=== PATIENT | female | born 1940 | race Caucasian/White ===

== ENCOUNTER 2017-12-13 16:47 | Inpatient (IN) | payer MEDICARE, BC ==
[~2017-12-13] VITALS: Ht 162.6 cm; Wt 91.3 kg
[2017-12-13] MEDS ORDERED: SPIR25TA PO (17:00)
[2017-12-13 17:01] VITALS: BP 139/69; PULSE 86; RESP 18; TEMP 98.2; O2SAT 97
[2017-12-13] MEDS ORDERED: ASPI-183 PO (17:01)
--- NOTE | 2017-12-13 17:32 | PD ---
HPI Chief Complaint: Syncope/Near-Syncope Time Seen by Provider: 17:13 Travel History International Travel<30 days: No Contact w/Intl Traveler<30days: No Traveled to known affect area: No History of Present Illness HPI 77-year-old female came to the emergency room with history syncopal episode today that was witnessed by her friend. This happened between 830 and 9:00. Patient was on the floor since then. Initially she did not want help to be called. But after struggling to make her stand up on her feet for couple hours he decided to call the fire department. Eventually she was off the floor after 7 hours. She was brought to the emergency room. As per the friend patient has been dealing with a "cold" for past 1 week. She has been taking Coricidin 2 tablets every day. Patient was afebrile in the emergency room. This morning she also had an episode of diarrhea. When she fell she hit her head and there was some bleeding noticed on the floor. Currently patient is awake but looks a little confused. No history of vomiting. She has never had syncopal episodes in the past. [facility] Past Medical History Narrative Medical List of her past medical, surgical, social and family history reviewed from the nursing note. Cardiovascular Problems: Yes (PERIPHERAL EDEMA) Musculoskeletal: Yes (CHRONIC BACK PAIN) Tetanus Vaccination: Unknown Influenza Vaccination: No ?: Not Past Surgical History Oral Surgery: Yes Social History Alcohol Use: No Tobacco Use: No Substance Use: No Allergies-Medications (Allergen,Severity, Reaction): Coded Allergies: No Known Allergies (Unverified , 12/13/17) Comments No known drug allergies. Reported Meds & Prescriptions Reported Meds & Active Scripts Active Reported Latanoprost Opth Drops (Latanoprost) 0.005% Drops 1 Drop EACH EYE HS Refrigerate until opened. Dorzolamide-Timolol Opth Drops 22.3-6.8 Mg/Ml Soln 1 Drop EACH EYE BID Aspirin 325 Mg Tab 325 Mg PO DAILY Spironolactone 25 Mg Tab 25 Mg PO DAILY Narrative Medication List of her home medications reviewed from the nursing note. Review of Systems Except as stated in HPI: all other systems reviewed are Neg Neurologic: Positive: Syncope Physical Exam Narrative GENERAL: Awake, confused, obese, moderate disc SKIN: Focused skin assessment warm/dry. HEAD: Atraumatic. Normocephalic. EYES: Pupils equal and round. No scleral icterus. No injection or drainage. ENT: No nasal bleeding or discharge. Mucous membranes pink and moist. Left pinna has a hematoma on the superior helix and a small superficial laceration that has clotted blood. NECK: Trachea midline. No JVD. CARDIOVASCULAR: Regular rate and rhythm. No murmur appreciated. RESPIRATORY: No accessory muscle use. Clear to auscultation. Breath sounds equal bilaterally. GASTROINTESTINAL: Abdomen soft, non-tender, nondistended. Hepatic and splenic margins not palpable. MUSCULOSKELETAL: No obvious deformities. No clubbing. No cyanosis. No edema. NEUROLOGICAL: Awake and confused. No obvious cranial nerve deficits. Motor grossly within normal limits. Normal speech. PSYCHIATRIC: Appropriate mood and affect; insight and judgment normal. Data Data Last Documented VS Vital Signs Date Time Temp Pulse Resp B/P (MAP) Pulse Ox O2 Delivery O2 Flow Rate FiO2 12/13/17 18:15 98 12/13/17 17:30 20 12/13/17 17:01 98.2 86 139/69 (92) Orders Orders Electrocardiogram (12/13/17 17:41) Complete Blood Count With Diff (12/13/17 17:41) Comprehensive Metabolic Panel (12/13/17 17:41) Troponin I (12/13/17 17:41) Prothrombin Time / Inr (Pt) (12/13/17 17:41) Urinalysis - C+S If Indicated (12/13/17 17:41) Chest, Single Ap (12/13/17 17:41) Ct Brain W/O Iv Contrast(Rout) (12/13/17 17:41) Blood Glucose (12/13/17 17:41) Ecg Monitoring (12/13/17 17:41) Iv Access Insert/Monitor (12/13/17 17:41) Oximetry (12/13/17 17:41) Sodium Chloride 0.9% Flush (Ns Flush) (12/13/17 17:45) Sodium Chlor 0.9% 1000 Ml Inj (Ns 1000 M (12/13/17 17:41) Creatine Kinase (Cpk) (12/13/17 17:41) CKMB (12/13/17 18:00) CKMB% (12/13/17 18:00) Place In Observation (12/13/17 ) Vital Signs (Adult) Q4H (12/13/17 19:07) Activity Bed Rest (12/13/17 19:07) Emt/Paramedic / Telemetry MOISES.Q8H (12/13/17 19:07) Diet Heart Healthy (12/14/17 Breakfast) Sodium Chlor 0.9% 1000 Ml Inj (Ns 1000 M (12/13/17 20:00) Sodium Chloride 0.9% Flush (Ns Flush) (12/13/17 19:15) Sodium Chloride 0.9% Flush (Ns Flush) (12/13/17 21:00) Complete Blood Count With Diff (12/14/17 06:00) Basic Metabolic Panel (Bmp) (12/14/17 06:00) Resp Oxygen Sonido C Titrat 1-4 L (12/13/17 ) Consult Neurology (12/13/17 ) Sodium Chlorid 0.9% 500 Ml Inj (Ns 500 M (12/13/17 19:15) Tetanus/Diphtheria Tox Adult (Tetanus/Di (12/13/17 19:15) Admit Order (Ed Use Only) (12/13/17 19:15) Us Carotid Arteries Comp Bilat (12/14/17 ) Echo 2d Comp With Doppler (12/14/17 ) Labs Laboratory Tests Test 12/13/17 18:00 12/13/17 18:02 White Blood Count 5.7 TH/MM3 Red Blood Count 4.69 MIL/MM3 Hemoglobin 14.5 GM/DL Hematocrit 44.1 % Mean Corpuscular Volume 94.0 FL Mean Corpuscular Hemoglobin 31.0 PG Mean Corpuscular Hemoglobin Concent 32.9 % Red Cell Distribution Width 12.9 % Platelet Count 149 TH/MM3 Mean Platelet Volume 8.0 FL Neutrophils (%) (Auto) 82.3 % Lymphocytes (%) (Auto) 11.2 % Monocytes (%) (Auto) 6.2 % Eosinophils (%) (Auto) 0.0 % Basophils (%) (Auto) 0.3 % Neutrophils # (Auto) 4.7 TH/MM3 Lymphocytes # (Auto) 0.6 TH/MM3 Monocytes # (Auto) 0.4 TH/MM3 Eosinophils # (Auto) 0.0 TH/MM3 Basophils # (Auto) 0.0 TH/MM3 CBC Comment DIFF FINAL Differential Comment Prothrombin Time 10.5 SEC Prothromb Time International Ratio 1.0 RATIO Blood Urea Nitrogen 14 MG/DL Creatinine 0.84 MG/DL Random Glucose 112 MG/DL Total Protein 7.3 GM/DL Albumin 3.3 GM/DL Calcium Level 8.2 MG/DL Alkaline Phosphatase 58 U/L Aspartate Amino Transf (AST/SGOT) 69 U/L Alanine Aminotransferase (ALT/SGPT) 34 U/L Total Bilirubin 0.4 MG/DL Sodium Level 134 MEQ/L Potassium Level 4.1 MEQ/L Chloride Level 102 MEQ/L Carbon Dioxide Level 22.9 MEQ/L Anion Gap 9 MEQ/L Estimat Glomerular Filtration Rate 66 ML/MIN Total Creatine Kinase 3547 U/L Creatine Kinase MB 5.0 NG/ML Creatine Kinase MB % 0.1 % Troponin I LESS THAN 0.02 NG/ML Urine Color YELLOW Urine Turbidity CLEAR Urine pH 5.5 Urine Specific Gordon 1.026 Urine Protein TRACE mg/dL Urine Glucose (UA) NEG mg/dL Urine Ketones 40 mg/dL Urine Occult Blood MOD Urine Nitrite NEG Urine Bilirubin NEG Urine Leukocyte Esterase NEG Urine RBC 4-9 /hpf Urine WBC 0-2 /hpf Urine Squamous Epithelial Cells 0-5 /hpf Urine Bacteria NONE /hpf Microscopic Urinalysis Comment CULT NOT INDICATED MDM Medical Decision Making Medical Screen Exam Complete: Yes Emergency Medical Condition: Yes Medical Record Reviewed: Yes Interpretation(s) Twelve-lead EKG is reviewed by me. Normal sinus rhythm, normal axis, nonspecific ST-T wave changes. Heart rate of 86 bpm. Differential Diagnosis Syncope, electrolyte abnormalities, intracranial bleed, rhabdomyolysis Narrative Course 7:26 PM blood test results are back and CPK is significantly elevated. Patient was initially given a liter of IV fluid bolus and have ordered another [address] scan and chest x-ray are within normal limits. Patient has been admitted to the hospitalist for syncope and rhabdomyolysis. I discussed this with the patient and she understands and has agreed to stay. Patient did not remember her last tetanus shot and hands 1 was given here today. Triple antibiotic ointment was applied on the ear laceration. It is not deep enough to be sutured. Procedures EKG Prior to Arrival: No Diagnosis Primary Impression: Syncope Qualified Codes: R55 - Syncope and collapse Additional Impressions: Rhabdomyolysis Qualified Codes: T79.6XXA - Traumatic ischemia of muscle, initial encounter Hematoma of auricle Qualified Codes: S00.432A - Contusion of left ear, initial encounter Concussion Qualified Codes: S06.0X1A - Concussion with loss of consciousness of 30 minutes or less, initial encounter Admitting Information Admitting Physician Requests: it Wicho Chen MD Dec 13, 2017 17:32
[2017-12-13] MEDS ORDERED: SODIUM CHLOR 0.9% 1000 ML INJ 1,000 ML IV ONE (17:41)
[2017-12-13] MEDS ORDERED: SODIUM CHLORIDE 0.9% FLUSH 10 ML FLUSH IVF PRN (17:45)
[2017-12-13 18:15] VITALS: O2SAT 98
[2017-12-13 18:15] LABS: AUTOMATED NEUTROPHIL # 4.7 TH/MM3 (1.8-7.7); BASOPHIL % 0.3 % (0.0-2.0); HEMATOCRIT 44.1 % (35.0-46.0); HEMOGLOBIN 14.5 GM/DL (11.6-15.3); LYMPH % 11.2 % (9.0-44.0); LYMPHOCYTE # 0.6 TH/MM3 (1.0-4.8); MEAN CORPUSCULAR HGB CONC 32.9 % (32.0-36.0); MONO % 6.2 % (0.0-8.0); MONOCYTE # 0.4 TH/MM3 (0-0.9); NEUT % 82.3 % (16.0-70.0); PLATELET COUNT 149 TH/MM3 (150-450); RED BLOOD COUNT 4.69 MIL/MM3 (4.00-5.30); RED CELL DISTRIBUTION WIDTH 12.9 % (11.6-17.2); WHITE BLOOD COUNT 5.7 TH/MM3 (4.0-11.0)
[2017-12-13 18:18] LABS: BILIRUBIN, URINE NEG (NEG); BLOOD, URINE MOD (NEG); GLUCOSE,URINE NEG (NEG); KETONE, URINE 40 mg/dL (NEG); NITRITE,URINE NEG (NEG); PH, URINE 5.5 (5.0-8.5); URINE LEUKOCYTE ESTERASE NEG (NEG)
[2017-12-13 18:25] LABS: URINE COLOR YELLOW (YELLW/STRAW)
[2017-12-13 18:26] LABS: SQUAMOUS EPITHELIAL CELL URINE 0-5 /hpf (0-5); WBC, URINE 0-2 /hpf (0-5)
[2017-12-13 18:28] LABS: PROTHROMBIN TIME - PATIENT 10.5 SEC (9.8-11.6)
[2017-12-13 18:37] LABS: CHLORIDE 102 MEQ/L (98-107); SODIUM (NA) 134 MEQ/L (136-145)
[2017-12-13 18:40] LABS: BICARBONATE 22.9 MEQ/L (21.0-32.0); BLOOD UREA NITROGEN 14 MG/DL (7-18); CALCIUM 8.2 MG/DL (8.5-10.1); GLUCOSE,RANDOM 112 MG/DL (74-106)
--- NOTE | 2017-12-13 18:46 | RADRPT ---
EXAM DATE/TIME: 12/13/2017 18:25 [facility] COMPARISON: No previous studies available for comparison. INDICATIONS : Patient states she passed out this morning and hit head on tile floor. Short of breath since. MEDICAL HISTORY : None. SURGICAL HISTORY : None. ENCOUNTER: Initial ACUITY: 1 day PAIN SCORE: 0/10 LOCATION: Bilateral chest FINDINGS: A single view of the chest demonstrates the lungs to be symmetrically aerated without evidence of mas s, infiltrate or effusion. The cardiomediastinal contours are unremarkable. Degenerative changes are noted throughout the thoracic spine. CONCLUSION: No acute disease. Robert Monahan MD on December 13, 2017 at 18:42 Board Certified Radiologist. This report was verified electronically.
--- NOTE | 2017-12-13 18:49 | RADRPT ---
EXAM DATE/TIME: 12/13/2017 18:35 [facility] COMPARISON: No previous studies available for comparison. INDICATIONS : Syncopal episode this morning. Dizziness now. RADIATION DOSE: 61.86 CTDIvol (mGy) MEDICAL HISTORY : Cardiovascular disease. SURGICAL HISTORY : None. ENCOUNTER: Initial ACUITY: 1 day PAIN SCALE: 5/10 LOCATION: Bilateral cranial TECHNIQUE: Multiple contiguous axial images were obtained of the head. Using automated exposure control and adj ustment of the mA and/or kV according to patient size, radiation dose was kept as low as reasonably a chievable to obtain optimal diagnostic quality images. DICOM format image data is available electro nically for review and comparison. FINDINGS: CEREBRUM: Central cerebral atrophy is noted. No evidence of midline shift, mass lesion, hemorrhage or acute inf arction. No extra-axial fluid collections are seen. Mild periventricular and subcortical white matte r small vessel ischemic changes are noted. POSTERIOR FOSSA: The cerebellum and brainstem are intact. The 4th ventricle is midline. The cerebellopontine angle i s unremarkable. EXTRACRANIAL: The visualized portion of the orbits is intact. SKULL: The calvaria is intact. No evidence of skull fracture. CONCLUSION: 1. Central cerebral atrophy. 2. Mild periventricular and subcortical white matter small vessel ischemic changes. 3. No acute infarct, acute hemorrhage, mass effect or extra-axial fluid collections. Robert Monahan MD on December 13, 2017 at 18:45 Board Certified Radiologist. This report was verified electronically.
[2017-12-13 19:00] LABS: CREATININE 0.84 MG/DL (0.50-1.00); GLOMERULAR FILTRATION RATE 66 ML/MIN (>89); TOTAL PROTEIN 7.3 GM/DL (6.4-8.2)
[2017-12-13 19:01] LABS: ALBUMIN 3.3 GM/DL (3.4-5.0); ALKALINE PHOSPHATASE 58 U/L (45-117); ALT (GPT) 34 U/L (10-53); AST (GOT) 69 U/L (15-37); TOTAL BILIRUBIN ADULT 0.4 MG/DL (0.2-1.0); TROPONIN I LESS THAN 0.02 NG/ML (0.02-0.05)
[2017-12-13] MEDS ORDERED: TETANUS/DIPHTHERIA TOXOID ADULT 0.5 ML VIAL IM ONE (19:15)
[2017-12-13] MEDS ORDERED: SODIUM CHLORIDE 0.9% FLUSH 10 ML FLUSH IV FLUSH PRN (19:15)
[2017-12-13] MEDS ORDERED: SODIUM CHLORID 0.9% 500 ML INJ 500 ML IV ONE (19:15)
[2017-12-13] MEDS ORDERED: DORZ2SOL15 EACH EYE (19:41)
[2017-12-13] MEDS ORDERED: LATA0.002 EACH EYE (19:42)
[2017-12-13 19:50] VITALS: BP 140/61; PULSE 87; RESP 16; O2SAT 98
[2017-12-13 22:00] VITALS: BP 145/79; PULSE 88; RESP 20; TEMP 98.9; O2SAT 95
[2017-12-13] MEDS: SODIUM CHLORIDE 0.9% FLUSH 10 ML FLUSH IV FLUSH SCH (22:27)
[2017-12-13] MEDS: SODIUM CHLOR 0.9% 1000 ML INJ 1,000 ML IV SCH (22:27)
[2017-12-13] MEDS: LATANOPROST 0.005% OPHT SOLN 2.5 ML BTL EACH EYE SCH (23:52)
[2017-12-13] MEDS: DORZOLAMIDE/TIMOLOL OPTH SOLN 10 ML BTL EACH EYE SCH (23:52)
[2017-12-14] VITALS (8 sets, daily range): BP systolic 122–158; BP diastolic 60–83; PULSE 16–93; RESP 18–20; TEMP 98.4–99; O2SAT 93–96
[2017-12-14] MEDS: SODIUM CHLOR 0.9% 1000 ML INJ 1,000 ML IV SCH ×4 (02:45→18:25)
[2017-12-14 06:06] LABS: AUTOMATED NEUTROPHIL # 3.4 TH/MM3 (1.8-7.7); BASOPHIL % 0.2 % (0.0-2.0); EOSINOPHIL % 0.1 % (0.0-4.0); HEMATOCRIT 40.5 % (35.0-46.0); HEMOGLOBIN 13.4 GM/DL (11.6-15.3); LYMPH % 21.6 % (9.0-44.0); MEAN CELL VOLUME 94.4 FL (80.0-100.0); MEAN CORPUSCULAR HEMOGLOBIN 31.3 PG (27.0-34.0); MEAN CORPUSCULAR HGB CONC 33.2 % (32.0-36.0); MEAN PLATELET VOLUME 8.1 FL (7.0-11.0); MONO % 9.3 % (0.0-8.0); MONOCYTE # 0.4 TH/MM3 (0-0.9); NEUT % 68.8 % (16.0-70.0); PLATELET COUNT 135 TH/MM3 (150-450); RED BLOOD COUNT 4.29 MIL/MM3 (4.00-5.30); RED CELL DISTRIBUTION WIDTH 12.7 % (11.6-17.2); WHITE BLOOD COUNT 4.8 TH/MM3 (4.0-11.0)
[2017-12-14 06:24] LABS: BICARBONATE 23.9 MEQ/L (21.0-32.0); CALCIUM 7.6 MG/DL (8.5-10.1)
[2017-12-14 06:28] LABS: CREATININE 0.6 MG/DL (0.50-1.00)
[2017-12-14] MEDS: SODIUM CHLORIDE 0.9% FLUSH 10 ML FLUSH IV FLUSH SCH ×2 (09:00→20:20)
--- NOTE | 2017-12-14 09:29 | PD.CONS ---
History of Present Illness Service Neurology Consult Requested By medical Reason for Consult syncope Primary Care Physician Javi Dickerson DO History of Present Illness 77-year-old female came to the emergency room with history syncopal episode today that was witnessed by her friend. had trouble standing and friend called evac. has had cold symptoms and diarrhea for the past week. has not been eating or drinking well. lives alone. is a retired banker. noted to have elevated ck levels. not on a statin. this am, c/o of cough but denies any horowitz, neck/spine pain, focal pain/weakness, vision loss or sensory symptoms. no hx of sz/stroke/tia. PFSH Past Medical History Cardiovascular Problems: Yes (PERIPHERAL EDEMA) Musculoskeletal: Yes (CHRONIC BACK PAIN) Past Surgical History Oral Surgery: Yes Social History Alcohol Use: No Tobacco Use: No Substance Use: No Allergies-Medications (Allergen,Severity, Reaction): Coded Allergies: No Known Allergies (Unverified , 12/13/17) Comments No known drug allergies. Reported Meds & Prescriptions Reported Meds & Active Scripts Active Reported Aspirin 325 Mg Tab 325 Mg PO DAILY Spironolactone 25 Mg Tab 25 Mg PO DAILY Narrative Medication List of her home medications reviewed from the nursing note. Review of Systems Except as stated in HPI: all other systems reviewed are Neg/as above and admit hp Review of Systems All other ROS: ROS reviewed as documented in chart Past Family Social History Allergies: Coded Allergies: No Known Allergies (Unverified , 12/13/17) Active Ordered Medications Current Medications Medications (Trade) Dose Ordered Sig/Margarita Route Start Time Stop Time Status Last Admin (NS Flush) 2 ml UNSCH PRN IVF 12/13/17 17:45 Sodium Chloride 1,000 ml @ 175 mls/hr [id number] IV 12/13/17 20:00 12/14/17 02:45 (NS Flush) 2 ml UNSCH PRN IV FLUSH 12/13/17 19:15 (NS Flush) 2 ml BID IV FLUSH 12/13/17 21:00 12/13/17 22:27 (Aspirin) 325 mg DAILY PO 12/14/17 09:00 (Cosopt 2-0.5% Opth Soln) 1 drop BID EACH EYE 12/13/17 21:00 12/13/17 23:52 (Xalatan 0.005% Opth Soln) 1 drop HS EACH EYE 12/13/17 21:00 12/13/17 23:52 (Flu (Quadrivalent) Vaccine Inj) 0.5 ml ONCE ONCE IM 12/14/17 10:00 12/14/17 10:01 Exam I&O / VS 12/14/17 12/14/17 12/15/17 15:00 23:00 07:00 Intake Total 812 ml Balance 812 ml Intake IV Total 812 ml Vital Signs Date Time Temp Pulse Resp B/P (MAP) Pulse Ox O2 Delivery O2 Flow Rate FiO2 12/14/17 08:16 94 21 12/14/17 04:00 99.0 87 20 129/78 (95) 96 12/13/17 22:00 98.9 88 20 145/79 (101) 95 12/13/17 21:53 12/13/17 19:50 98 21 12/13/17 19:50 87 16 140/61 (87) 98 Room Air 12/13/17 18:15 98 12/13/17 17:30 20 12/13/17 17:01 98.2 86 18 139/69 (92) 97 General: Alert and Oriented, No acute distress Eye: EOMI Respiratory: Coarse breath sounds Neurologic: Alert, Oriented, Normal sensory, Normal motor, No focal defects, CN II-XII intact, Normal DTR's Psychiatric: Cooperative, Appropriate mood & affect Exam Comments ox 3, coughing during interview, articulate, follows, eomi, vff, neck supple, raise all 4 ext to gravity, tactile/pin nml, msr 2+, no clonus, planterflexor, gait not assessed 2/2 fall risk Review/Management Diagnosis/Plan: (1) Syncope ICD Codes: R55 - Syncope and collapse Status: Acute Plan: syncope/fall likely 2/2 dehydration/weakness from URI rec hydration follow ck's check orthostatics/eeg p.t. d/w medical (2) Rhabdomyolysis ICD Codes: M62.82 - Rhabdomyolysis Status: Acute Plan: follow ck, ivf (3) Concussion ICD Codes: S06.0X9A - Concussion with loss of consciousness of unspecified duration, initial encounter Status: Acute Plan: will check eeg/mri brain Problem Qualifiers (1) Syncope: Qualified Codes: R55 - Syncope and collapse (2) Rhabdomyolysis: Qualified Codes: T79.6XXA - Traumatic ischemia of muscle, initial encounter (3) Concussion: Qualified Codes: S06.0X1A - Concussion with loss of consciousness of 30 minutes or less, initial encounter Carlito Loredo MD Dec 14, 2017 09:29
--- NOTE | 2017-12-14 09:44 | RADRPT ---
EXAM DATE/TIME: 12/14/2017 09:14 [facility] COMPARISON: No previous studies available for comparison. INDICATIONS : Syncope. MEDICAL HISTORY : Chronic back pain. Peripheral cardiac edema. Substance use. SURGICAL HISTORY : [place] teeth removed. Dental implants. ENCOUNTER: Initial ACUITY: 1 day PAIN SCORE: 1/10 LOCATION: Bilateral neck PEAK SYSTOLIC VELOCITIES (cm/sec): ICA/CCA RATIO: Right: 0.8 Left: 0.8 ICA: Right: 91 Left: 92 CCA: Right: 111 Left: 113 ECA: Right: 177 Left: 150 VERTEBRAL: Right: 67 antegrade Left: 64 antegrade Elevated flow velocities and ICA/CCA ratios have been found to correlate with increased degrees of vessel stenosis, calculated as percentage of diameter relative to a normal segment of distal ICA/CCA FINDINGS: RIGHT CAROTID: No significant stenosis is visualized. Minimal plaque is present. The waveforms are within normal [place] its. LEFT CAROTID: No significant stenosis is visualized. Minimal plaque is present. The waveforms are within normal li mits. VERTEBRAL ARTERIES: Antegrade flow is seen in both vertebral arteries. MISCELLANEOUS: None. CONCLUSION: Minimal plaque with no evidence of stenosis. Antonio Gunderson MD on December 14, 2017 at 9:39 Board Certified Radiologist. This report was verified electronically.
[2017-12-14] MEDS ORDERED: INFLUENZA VIRUS VACCINE (QUADRIVALENT) 0.5 ML SYR IM ONE (10:00)
--- NOTE | 2017-12-14 10:34 | ECHRPT ---
Indication: SHORTNESS OF BREATH CONCLUSIONS Normal left ventricular size and wall thickness. The left ventricular systolic function is normal wi th an estimated ejection fraction in the range of 60-65%. Normal wall motion. There is trace tricuspid valve regurgitation. The estimated pulmonary arterial pressure is 30 mmHg. Trace mitral valve regurgitation. BP: 129 / 78 HR: 87 Rhythm: Sinus MEASUREMENTS (Male / Female) Normal Values Technical Quality:Fair 2D ECHO LV Diastolic Diameter PLAX 4.0 cm 4.2 - 5.9 / 3.9 - 5.3 cm LV Systolic Diameter PLAX 2.5 cm IVS Diastolic Thickness 1.2 cm 0.6 - 1.0 / 0.6 - 0.9 cm LVPW Diastolic Thickness 1.2 cm 0.6 - 1.0 / 0.6 - 0.9 cm LV Relative Wall Thickness 0.6 RV Internal Dim ED PLAX 2.7 cm LVOT Diameter 2.0 cm Aortic Root Diameter 2.6 cm LA Systolic Diameter LX 2.7 cm 3.0 - 4.0 / 2.7 - 3.8 cm M-MODE AV Cusp Separation MM 2.0 cm DOPPLER AV Peak Velocity 117.0 cm/s AV Peak Gradient 5.5 mmHg AV Mean Gradient 3.0 mmHg AV Velocity Time Integral 23.2 cm LVOT Peak Velocity 79.7 cm/s LVOT Peak Gradient 2.5 mmHg LVOT Velocity Time Integral 16.7 cm AV Area Cont Eq vti 2.3 cm AV Area Cont Eq pk 2.1 cm Mitral E Point Velocity 74.0 cm/s Mitral A Point Velocity 76.5 cm/s Mitral E to A Ratio 1.0 LV E' Lateral Velocity 9.8 cm/s Mitral E to LV E' Lateral Ratio 7.6 LV E' Septal Velocity 13.1 cm/s Mitral E to LV E' Septal Ratio 5.6 TR Peak Velocity 242.0 cm/s TR Peak Gradient 23.4 mmHg Right Atrial Pressure 10.0 mmHg Pulmonary Artery Systolic Pressu 33.4 mmHg Right Ventricular Systolic Press 33.4 mmHg PV Peak Velocity 72.9 cm/s PV Peak Gradient 2.1 mmHg FINDINGS LEFT VENTRICLE Normal left ventricular size and wall thickness. The left ventricular systolic function is normal wi th an estimated ejection fraction in the range of 60-65%. Normal wall motion. RIGHT VENTRICLE Normal right ventricular size and systolic function. LEFT ATRIUM The left atrial size is normal. RIGHT ATRIUM The right atrial size is normal. ATRIAL SEPTUM The interatrial septum not well visualized. AORTA The aortic root and proximal ascending aorta are normal in size on limited imaging. MITRAL VALVE Trace mitral valve regurgitation. AORTIC VALVE Trileaflet aortic valve. No aortic valve stenosis or regurgitation. TRICUSPID VALVE There is trace tricuspid valve regurgitation. The estimated pulmonary arterial pressure is 30 mmHg. PULMONARY VALVE No pulmonary valve regurgitation or stenosis. VESSELS The inferior vena cava was not well visualized. PERICARDIUM No pericardial effusion. Dat Luna MD (Electronically Signed) Final Date:14 December 2017 10:33
[2017-12-14] MEDS: ASPIRIN 325 MG TAB PO SCH (10:55)
--- NOTE | 2017-12-14 12:11 | RADRPT ---
EXAM DATE/TIME: 12/14/2017 11:40 [facility] COMPARISON: No previous studies available for comparison. INDICATIONS : Syncope. MEDICAL HISTORY : Rhabdomyolosis. SURGICAL HISTORY : None. ENCOUNTER: Initial ACUITY: 1 day PAIN SCORE: 0/10 LOCATION: cranial Please note a normal MRA of the brain does not entirely exclude the possibility of a small aneurysm, nor the possibility of distal intracranial vessel disease. TECHNIQUE: 3D time of flight MRA was performed. Source images, multiplanar STS MIP, and 3D volume MIP reconstru ctions were reviewed. FINDINGS: Anterior circulation: The internal carotid arteries and middle cerebral arteries are within normal limits. Anterior cerebra l arteries demonstrate no abnormality. No aneurysm or stenosis is present. Posterior circulation: Right vertebral artery is dominant. Basilar artery is within normal limits. Posterior cerebral arteri es demonstrate no abnormality. CONCLUSION: No intracranial vascular abnormalities identified. Elijah Cabral MD on December 14, 2017 at 12:06 Board Certified Radiologist. This report was verified electronically.
--- NOTE | 2017-12-14 12:57 | RADRPT ---
EXAM DATE/TIME: 12/14/2017 11:40 [facility] COMPARISON: CT BRAIN W/O CONTRAST, December 13, 2017, 18:35. INDICATIONS : Syncope. MEDICAL HISTORY : Rhabdomyolosis. SURGICAL HISTORY : None. ENCOUNTER: Initial ACUITY: 1 day PAIN SCORE: 0/10 LOCATION: cranial TECHNIQUE: Multiplanar, multisequence MRI of the brain was performed without contrast. FINDINGS: CEREBRUM: There is moderate generalized atrophy. Ventricles are prominent but within the range of expected give n the degree of atrophy present. No evidence of midline shift, mass lesion, hemorrhage or acute infa rction. No extraaxial fluid collections are seen. The pituitary gland and suprasellar cistern are n ormal in configuration. WHITE MATTER: There is moderate severity periventricular and subcortical white matter signal change bilaterally. POSTERIOR FOSSA: The cerebellum and brainstem demonstrate no acute finding. The 4th ventricle is midline. The cerebel lopontine angle is unremarkable. The cerebellar tonsils are normal in position. DIFFUSION IMAGING: No focal areas of restricted diffusion are seen. No evidence of acute infarction. EXTRACRANIAL: The visualized portions of the orbits and paranasal sinuses are unremarkable. CONCLUSION: 1. No acute intracranial abnormality is identified. There are no findings to indicate recent ischemia . 2. Chronic changes include moderate generalized atrophy and moderate severity chronic periventricular and subcortical white matter signal change. Elijah Cabral MD on December 14, 2017 at 12:52 Board Certified Radiologist. This report was verified electronically.
--- NOTE | 2017-12-14 13:15 | HHI.HP ---
[facility] Primary [facility] Physician Javi Dickerson, DO Admission Diagnosis Syncope, Rhabdomyolysis Diagnoses: Chief Complaint: Fainted Travel History International Travel<30 Days: No Contact w/Intl Traveler <30 Da: No Traveled to Known Affected Are: No History of Present Illness Patient is a 77-year-old female with minimal past history who comes to the hospital with an acute episode of passing out. She was on the floor for several hours and could not get up. She called 911. She said recent she had a upper respiratory infection which consisted of coughing and subjective fevers. She took some [id number] Coricidin and Robitussin. She had not been eating well. She did come to the hospital and has been evaluated for an abrasion on her ear after the fall. She appears to have rhabdomyolysis and appears to have a syncopal episode likely related to her recent viral syndrome and dehydration. After IV hydration she is improved. She is recommended for observation. Review of Systems Constitutional: COMPLAINS OF: Dizziness, DENIES: Diaphoretic episodes, Fatigue , Fever, Weight gain, Weight loss, Chills, Change in appetite, Night Sweats Endocrine: DENIES: Abnorml menstrual pattern, Heat/cold intolerance, Polydipsia , Polyuria, Polyphagia Eyes: DENIES: Blurred vision, Diplopia, Eye inflammation, Eye pain, Vision loss , Photosensitivity, Double Vision Ears, nose, mouth, throat: DENIES: Tinnitus, Hearing loss, Vertigo, Nasal discharge, Oral lesions, Throat pain, Hoarseness, Ear Pain, Running Nose, Epistaxis, Sinus Pain, Toothache, Odynophagia Respiratory: DENIES: Apneas, Cough, Snoring, Wheezing, Hemoptysis, Sputum production, Shortness of breath Cardiovascular: DENIES: Chest pain, Palpitations, Syncope, Dyspnea on Exertion , PND, Lower Extremity Edema, Orthopnea, Claudication Gastrointestinal: DENIES: Abdominal pain, Black stools, Bloody stools, Constipation, Diarrhea, Nausea, Vomiting, Difficulty Swallowing, Anorexia Genitourinary: DENIES: Abnormal vaginal bleeding, Dysmenorrhea, Dyspareunia, Sexual dysfunction, Urinary frequency, Urinary incontinence, Urgency, Hematuria , Dysuria, Nocturia, Vaginal discharge Musculoskeletal: DENIES: Joint pain, Muscle aches, Stiffness, Joint Swelling, Back pain, Neck pain Integumentary: DENIES: Abnormal pigmentation, Pruritus, Rash, Nail changes, Breast masses, Breast skin changes, Nipple discharge Hematologic/lymphatic: DENIES: Bruising, Lymphadenopathy Immunologic/allergic: DENIES: Eczema, Urticaria Neurologic: DENIES: Abnormal gait, Headache, Localized weakness, Paresthesias, Seizures, Speech Problems, Tremor, Poor Balance Psychiatric: DENIES: Anxiety, Confusion, Mood changes, Depression, Hallucinations, Agitation, Suicidal Ideation, Homicidal Ideation, Delusions Except as stated in HPI: all other systems reviewed are Neg Past Family Social History Past Medical History Edema, glaucoma Past Surgical History none Reported Medications reviewed in the emr Allergies: Coded Allergies: No Known Allergies (Unverified , 12/13/17) Active Ordered Medications Reviewed in the EMR Family History Parents of old age Social History No tobacco or alcohol dependency, lives with her roommate Physical Exam Vital Signs Vital Signs Date Time Temp Pulse Resp B/P (MAP) Pulse Ox O2 Delivery O2 Flow Rate FiO2 12/14/17 08:16 94 21 12/14/17 08:00 98.4 16 18 145/62 (89) 95 12/14/17 04:00 99.0 87 20 129/78 (95) 96 12/13/17 22:00 98.9 88 20 145/79 (101) 95 12/13/17 21:53 12/13/17 19:50 98 21 12/13/17 19:50 87 16 140/61 (87) 98 Room Air 12/13/17 18:15 98 12/13/17 17:30 20 12/13/17 17:01 98.2 86 18 139/69 (92) 97 Physical Exam GENERAL: This is a well-nourished, well-developed patient, in no apparent distress. SKIN: Ear abrasions status post fall, No rashes, ecchymoses or lesions. Cool and dry. HEAD: Atraumatic. Normocephalic. No temporal or scalp tenderness. EYES: Pupils equal round and reactive. Extraocular motions intact. No scleral icterus. No injection or drainage. ENT: Nose without bleeding, purulent drainage or septal hematoma. Throat without erythema, tonsillar hypertrophy or exudate. Uvula midline. Airway patent. NECK: Trachea midline. No JVD or lymphadenopathy. Supple, nontender, no meningeal signs. CARDIOVASCULAR: Regular rate and rhythm without murmurs, gallops, or rubs. RESPIRATORY: Clear to auscultation. Breath sounds equal bilaterally. No wheezes , rales, or rhonchi. GASTROINTESTINAL: Abdomen soft, non-tender, nondistended. No hepato-splenomegaly , or palpable masses. No guarding. MUSCULOSKELETAL: Extremities without clubbing, cyanosis, or edema. No joint tenderness, effusion, or edema noted. No calf tenderness. Negative Homans sign bilaterally. NEUROLOGICAL: Awake and alert. Cranial nerves II through XII intact. Motor and sensory grossly within normal limits. Five out of 5 muscle strength in all muscle groups. Normal speech. Laboratory Laboratory Tests Test 12/13/17 18:00 12/13/17 18:02 12/14/17 05:37 White Blood Count 5.7 4.8 Red Blood Count 4.69 4.29 Hemoglobin 14.5 13.4 Hematocrit 44.1 40.5 Mean Corpuscular Volume 94.0 94.4 Mean Corpuscular Hemoglobin 31.0 31.3 Mean Corpuscular Hemoglobin Concent 32.9 33.2 Red Cell Distribution Width 12.9 12.7 Platelet Count 149 135 Mean Platelet Volume 8.0 8.1 Neutrophils (%) (Auto) 82.3 68.8 Lymphocytes (%) (Auto) 11.2 21.6 Monocytes (%) (Auto) 6.2 9.3 Eosinophils (%) (Auto) 0.0 0.1 Basophils (%) (Auto) 0.3 0.2 Neutrophils # (Auto) 4.7 3.4 Lymphocytes # (Auto) 0.6 1.0 Monocytes # (Auto) 0.4 0.4 Eosinophils # (Auto) 0.0 0.0 Basophils # (Auto) 0.0 0.0 CBC Comment DIFF FINAL DIFF FINAL Differential Comment Prothrombin Time 10.5 Prothromb Time International Ratio 1.0 Blood Urea Nitrogen 14 11 Creatinine 0.84 0.60 Random Glucose 112 93 Total Protein 7.3 Albumin 3.3 Calcium Level 8.2 7.6 Alkaline Phosphatase 58 Aspartate Amino Transf (AST/SGOT) 69 Alanine Aminotransferase (ALT/SGPT) 34 Total Bilirubin 0.4 Sodium Level 134 137 Potassium Level 4.1 3.9 Chloride Level 102 106 Carbon Dioxide Level 22.9 23.9 Anion Gap 9 7 Estimat Glomerular Filtration Rate 66 97 Total Creatine Kinase 3547 6316 Creatine Kinase MB 5.0 7.0 Creatine Kinase MB % 0.1 0.1 Troponin I LESS THAN 0.02 Urine Color YELLOW Urine Turbidity CLEAR Urine pH 5.5 Urine Specific Conway 1.026 Urine Protein TRACE Urine Glucose (UA) NEG Urine Ketones 40 Urine Occult Blood MOD Urine Nitrite NEG Urine Bilirubin NEG Urine Leukocyte Esterase NEG Urine RBC 4-9 Urine WBC 0-2 Urine Squamous Epithelial Cells 0-5 Urine Bacteria NONE Microscopic Urinalysis Comment CULT NOT INDICATED Erythrocyte Sedimentation Rate 6 Thyroid Stimulating Hormone 3rd Gen 2.390 Result Diagram: 12/14/17 0537 12/14/17 0537 Imaging Last Impressions Head Magnetic Resonance Angiography 12/14/17 0000 Signed Impressions: Service Date/Time: Thursday, December 14, 2017 11:40 - CONCLUSION: No intracranial vascular abnormalities identified. Elijah Cabral MD Carotid Artery Ultrasound 12/14/17 0000 Signed Impressions: Service Date/Time: Thursday, December 14, 2017 09:14 - CONCLUSION: Minimal plaque with no evidence of stenosis. Antonio Gunderson MD Brain MRI 12/14/17 0000 Signed Impressions: Service Date/Time: Thursday, December 14, 2017 11:40 - CONCLUSION: 1. No acute intracranial abnormality is identified. There are no findings to indicate recent ischemia. 2. Chronic changes include moderate generalized atrophy and moderate severity chronic periventricular and subcortical white matter signal change. Elijah Cabral MD Head CT [id number] Signed Impressions: Service Date/Time: December 18:35 - CONCLUSION: 1. Central cerebral atrophy. 2. Mild periventricular and subcortical white matter small vessel ischemic changes. 3. No acute infarct, acute hemorrhage, mass effect or extra-axial fluid collections. Robert Monahan MD Chest X-Ray [id number] Signed Impressions: Service Date/Time: December 18:25 - CONCLUSION: No acute disease. Robert Monahan MD Caprini VTE Risk Assessment Caprini VTE Risk Assessment: No/Low Risk (score <= 1) Caprini Risk Assessment Model Point Value = 1 Point Value = 2 Point Value = 3 Point Value = 5 Age 41-60 Minor surgery BMI > 25 kg/m2 Swollen legs Varicose veins or History of unexplained or recurrent spontaneous Oral contraceptives or hormone replacement Sepsis (< 1 month) Serious lung disease, including pneumonia (< 1 month) Abnormal pulmonary function Acute myocardial infarction Congestive heart failure (< 1 month) History of inflammatory bowel disease Medical patient at bed rest Age 61-74 Arthroscopic surgery Major open surgery (> 45 min) Laparoscopic surgery (> 45 min) Malignancy Confined to bed (> 72 hours) Immobilizing plaster cast Central venous access Age >= 75 History of VTE Family history of VTE Factor V Leiden Prothrombin [id number] Lupus anticoagulant Anticardiolipin antibodies Elevated serum homocysteine Heparin-induced thrombocytopenia Other congenital or acquired thrombophilia Stroke (< 1 month) Elective arthroplasty Hip, pelvis, or leg fracture Acute spinal cord injury (< 1 month) Prophylaxis Regimen Total Risk Factor Score Risk Level Prophylaxis Regimen 0-1 Low Early ambulation 2 Moderate Order ONE of the following: *Sequential Compression Device (SCD) *Heparin 5000 units SQ BID 3-4 Higher Order ONE of the following medications: *Heparin 5000 units SQ TID *Enoxaparin/Lovenox 40 mg SQ daily (WT < 150 kg, CrCl > 30 mL/min) *Enoxaparin/Lovenox 30 mg SQ daily (WT < 150 kg, CrCl > 10-29 mL/min) *Enoxaparin/Lovenox 30 mg SQ BID (WT < 150 kg, CrCl > 30 mL/min) AND/OR *Sequential Compression Device (SCD) 5 or more Highest Order ONE of the following medications: *Heparin 5000 units SQ TID (Preferred with Epidurals) *Enoxaparin/Lovenox 40 mg SQ daily (WT < 150 kg, CrCl > 30 mL/min) *Enoxaparin/Lovenox 30 mg SQ daily (WT < 150 kg, CrCl > 10-29 mL/min) *Enoxaparin/Lovenox 30 mg SQ BID (WT < 150 kg, CrCl > 30 mL/min) AND *Sequential Compression Device (SCD) Assessment and Plan Problem List: (1) Syncope ICD Code: R55 - Syncope and collapse Status: Acute Plan: Etiology unclear but likely due to recent viral syndrome and dehydration. Continue with aggressive hydration and follow clinically (2) Rhabdomyolysis ICD Code: M62.82 - Rhabdomyolysis Status: Acute Plan: likely secondary to fall, will follow serial CPKs Continue IV hydration Follow renal function Problem Qualifiers (1) Syncope: Qualified Codes: R55 - Syncope and collapse (2) Rhabdomyolysis: Qualified Codes: T79.6XXA - Traumatic ischemia of muscle, initial encounter Ophelia De La Torre MD Dec 14, 2017 13:15
[2017-12-14] MEDS: DORZOLAMIDE/TIMOLOL OPTH SOLN 10 ML BTL EACH EYE SCH ×2 (13:34→20:19)
--- NOTE | 2017-12-14 18:56 | EKG ---
Date Performed: 12/13/2017 Time Performed: 18:06:30 PTAGE: 77 years EKG: Sinus rhythm NORMAL ECG NO PREVIOUS TRACING DOCTOR: Bradford Quiroz Interpretating Date/Time 12/14/2017 18:56:16
[2017-12-14] MEDS: LATANOPROST 0.005% OPHT SOLN 2.5 ML BTL EACH EYE SCH (20:19)
[2017-12-15] VITALS: BP 149/75; PULSE 83; RESP 20; TEMP 99.7; O2SAT 93
[2017-12-15] MEDS: SODIUM CHLOR 0.9% 1000 ML INJ 1,000 ML IV SCH ×2 (00:55→06:07)
[2017-12-15 04:00] VITALS: BP 153/70; PULSE 85; RESP 20; TEMP 97.1; O2SAT 91
[2017-12-15 07:29] LABS: BICARBONATE 23.1 MEQ/L (21.0-32.0)
[2017-12-15 07:30] LABS: CALCIUM 7.6 MG/DL (8.5-10.1)
[2017-12-15 07:31] LABS: CREATININE 0.52 MG/DL (0.50-1.00)
--- NOTE | 2017-12-15 07:31 | MG ---
cc: ANGIE SCOTT MD Lab No: [id number] Date: 12/14/2017 : 1940 Sex: F INDICATION A 77-year-old female with history of syncopal episode. DESCRIPTION 8-9 Hz posterior rhythm, 10-30 microvolts in the frontal channels. Good anterior-posterior gradient. Appropriate EEG variability and reactivity noted. Some eye movement artifact is noted. Bursts of delta and some background slowing suggestive of a drowsy state; however, increased theta delta entry into drowsy state followed by spindles suggestive of stage II sleep with K-complexes. Reduced driving with photic stimulation. Single lead EKG showing sinus rhythm. INTERPRETATION Normal awake and sleep EEG. Clinical correlation. Angie Scott MD MG/BT /9:35 PM /7:21 AM
[2017-12-15 08:00] VITALS: BP 145/66; PULSE 79; RESP 18; TEMP 99.1; O2SAT 89; O2SAT 92
[2017-12-15 08:30] VITALS: O2SAT 92
[2017-12-15] MEDS: ASPIRIN 325 MG TAB PO SCH (08:47)
[2017-12-15] MEDS: SODIUM CHLORIDE 0.9% FLUSH 10 ML FLUSH IV FLUSH SCH (08:49)
[2017-12-15] MEDS: DORZOLAMIDE/TIMOLOL OPTH SOLN 10 ML BTL EACH EYE SCH (08:49)
[2017-12-15 09:20] VITALS: PULSE 80
--- NOTE | 2017-12-15 09:31 | HHI.PR ---
Review/Management Diagnosis/Plan: (1) Syncope ICD Codes: R55 - Syncope and collapse Status: Acute Plan: syncope/fall likely 2/2 dehydration/weakness from URI mri/mra brain negative; carotid u/s negative eeg- nml rec doing well hydration follow ck's- declining, down to 2000's from 6000's check orthostatics/eeg p.t. d/c planning rehab/snf (2) Rhabdomyolysis ICD Codes: M62.82 - Rhabdomyolysis Status: Acute Plan: follow ck, ivf (3) Concussion ICD Codes: S06.0X9A - Concussion with loss of consciousness of unspecified duration, initial encounter Status: Acute Plan: will check eeg/mri brain Subjective Subjective Comments No acute events reported No headache No chest pain No dyspnea Active Medications Current Medications Medications (Trade) Dose Ordered Sig/Margarita Route Start Time Stop Time Status Last Admin (NS Flush) 2 ml UNSCH PRN IVF 12/13/17 17:45 Sodium Chloride 1,000 ml @ 175 mls/hr [id number] IV 12/13/17 20:00 12/15/17 06:07 (NS Flush) 2 ml UNSCH PRN IV FLUSH 12/13/17 19:15 (NS Flush) 2 ml BID IV FLUSH 12/13/17 21:00 12/13/17 22:27 (Aspirin) 325 mg DAILY PO 12/14/17 09:00 12/15/17 08:47 (Cosopt 2-0.5% Opth Soln) 1 drop BID EACH EYE 12/13/17 21:00 12/15/17 08:49 (Xalatan 0.005% Opth Soln) 1 drop HS EACH EYE 12/13/17 21:00 12/14/17 20:19 Allergies Allergies Coded Allergies No Known Allergies (Unverified12/13/17) Review of Systems All other ROS: ROS reviewed as documented in chart Exam I&O / VS 12/15/17 12/15/17 12/16/17 15:00 23:00 07:00 Intake Total 240 ml Balance 240 ml Intake Oral 240 ml # Bowel Movements 0 Vital Signs Date Time Temp Pulse Resp B/P (MAP) Pulse Ox O2 Delivery O2 Flow Rate FiO2 12/15/17 08:30 92 21 12/15/17 04:00 97.1 85 20 153/70 (97) 91 2/3/18 00:00 99.7 83 20 149/75 (99) 93 12/14/17 22:08 92 12/14/17 20:56 93 21 12/14/17 20:00 99.0 93 20 158/83 (108) 95 12/14/17 16:00 98.9 80 18 128/60 (82) 96 12/14/17 12:00 98.9 79 18 122/60 (80) 96 General: Alert and Oriented, No acute distress Eye: EOMI Respiratory: Coarse breath sounds Neurologic: Alert, Oriented, Normal sensory, Normal motor, No focal defects, CN II-XII intact, Normal DTR's Psychiatric: Cooperative, Appropriate mood & affect Exam Comments ox 3, looks more comfortable, on cell phone conversing, follows, eomi, vff, neck supple, raise all 4 ext to gravity, tactile/pin nml, msr 2+, no clonus, planterflexor, gait not assessed 12/14 fall risk Objective Micro and Labs Laboratory Tests Test 12/15/17 05:59 Blood Urea Nitrogen 9 Creatinine 0.52 Random Glucose 92 Calcium Level 7.6 Sodium Level 138 Potassium Level 3.9 Chloride Level 108 Carbon Dioxide Level 23.1 Anion Gap 7 Estimat Glomerular Filtration Rate 114 Total Creatine Kinase 2835 Creatine Kinase MB 2.6 Creatine Kinase MB % 0.1 Date/Time Source Procedure Growth Status 12/14/17 22:40 Nasal Aspirate Influenza Types A,B Antigen (GOIVANA) - Final NEGATIVE FOR FLU A AND B ANTIGEN.... Complete Problem Qualifiers (1) Syncope: Qualified Codes: R55 - Syncope and collapse (2) Rhabdomyolysis: Qualified Codes: T79.6XXA - Traumatic ischemia of muscle, initial encounter (3) Concussion: Qualified Codes: S06.0X1A - Concussion with loss of consciousness of 30 minutes or less, initial encounter Carlito Loredo MD Dec 15, 2017 09:31
--- NOTE | 2017-12-15 10:00 | HHI.FF ---
Face to Face Verification Diagnosis: (1) Rhabdomyolysis Physical Therapy Order: Evaluate and Treat, Improve ambulation Occupational Therapy Order: Evaluate and Treat, Gross motor coordination Home Health Nursing Order: Medical education I have seen patient Libby Park on 12/15/17. My clinical findings support the need for the requested home health care services because: Ltd mobility - disease progression Patient has SOB I certify that my clinical findings support that this patient is homebound because: Unsteady gait/balance Ophelia De La Torre MD Dec 15, 2017 10:00
[2017-12-15] MEDS ORDERED: FUROSEMIDE 20 MG/2 ML VIAL IV PUSH ONE (10:15)
--- NOTE | 2017-12-15 10:31 | HHI.DS ---
Discharge Summary Admission Date Dec 13, 2017 at 19:17 Discharge Date: Dec 15, 2017 Admitting Diagnosis Syncope, Rhabdomyolysis (1) Syncope ICD Code: R55 - Syncope and collapse Status: Acute (2) Rhabdomyolysis ICD Code: M62.82 - Rhabdomyolysis Status: Acute Procedures none Brief History - From Admission Patient is a 77-year-old female with minimal past history who comes to the hospital with an acute episode of passing out. She was on the floor for several hours and could not get up. She called 911. She said recent she had a upper respiratory infection which consisted of coughing and subjective fevers. She took some [id number]-[id number] Coricidin and Robitussin. She had not been eating well. She did come to the hospital and has been evaluated for an abrasion on her ear after the fall. She appears to have rhabdomyolysis and appears to have a syncopal episode likely related to her recent viral syndrome and dehydration. After IV hydration she is improved. She is recommended for observation. CBC/BMP: 12/14/17 0537 12/15/17 0559 Significant Findings Laboratory Tests Test 12/13/17 18:00 12/13/17 18:02 12/14/17 05:37 12/15/17 05:59 Platelet Count 149 TH/MM3 (150-450) 135 TH/MM3 (150-450) Neutrophils (%) (Auto) 82.3 % (16.0-70.0) Lymphocytes # (Auto) 0.6 TH/MM3 (1.0-4.8) Random Glucose 112 MG/DL (74-106) Albumin 3.3 GM/DL (3.4-5.0) Calcium Level 8.2 MG/DL (8.5-10.1) 7.6 MG/DL (8.5-10.1) 7.6 MG/DL (8.5-10.1) Aspartate Amino Transf (AST/SGOT) 69 U/L (15-37) Sodium Level 134 MEQ/L (136-145) Estimat Glomerular Filtration Rate 66 ML/MIN (>89) Total Creatine Kinase 3547 U/L (26-192) 6316 U/L (26-192) 2835 U/L (26-192) Creatine Kinase MB 5.0 NG/ML (0.5-3.6) 7.0 NG/ML (0.5-3.6) Troponin I LESS THAN 0.02 NG/ML Urine Ketones 40 mg/dL (NEG) Urine Occult Blood MOD (NEG) Urine RBC 4-9 /hpf (0-3) Monocytes (%) (Auto) 9.3 % (0.0-8.0) Chloride Level 108 MEQ/L (98-107) Imaging Last Impressions Head Magnetic Resonance Angiography 12/14/17 Signed Impressions: Service Date/Time: Thursday, December 14, 2017 11:40 - CONCLUSION: No intracranial vascular abnormalities identified. Elijah Cabral MD Carotid Artery Ultrasound 12/14/17 Signed Impressions: Service Date/Time: Thursday, December 14, 2017 09:14 - CONCLUSION: Minimal plaque with no evidence of stenosis. Antonio Gunderson MD Brain MRI 12/14/17 Signed Impressions: Service Date/Time: Thursday, December 14, 2017 11:40 - CONCLUSION: 1. No acute intracranial abnormality is identified. There are no findings to indicate recent ischemia. 2. Chronic changes include moderate generalized atrophy and moderate severity chronic periventricular and subcortical white matter signal change. Elijah Cabral MD Head CT [id number]/13/171740 Signed Impressions: Service Date/Time: December 18:35 - CONCLUSION: 1. Central cerebral atrophy. 2. Mild periventricular and subcortical white matter small vessel ischemic changes. 3. No acute infarct, acute hemorrhage, mass effect or extra-axial fluid collections. Robert Monahan MD Chest X-Ray [id number]/13/171740 Signed Impressions: Service Date/Time: December 18:25 - CONCLUSION: No acute disease. Robert Monahan MD PE at Discharge GENERAL: This is a well-nourished, well-developed patient, in no apparent distress. CARDIOVASCULAR: Regular rate and rhythm without murmurs, gallops, or rubs. RESPIRATORY: Clear to auscultation. Breath sounds equal bilaterally. No wheezes , rales, or rhonchi. GASTROINTESTINAL: Abdomen soft, non-tender, nondistended. Normal active bowel sounds MUSCULOSKELETAL: Extremities without clubbing, cyanosis, or edema. NEURO: Alert & Oriented x4 to person, place, time, situation. Moves all ext x4 Pt update on day of discharge Doing better Rhabdo improved EEG, Imaging wnl Hospital Course Patient seen and evaluated today in follow-up for rhabdomyolysis and weakness Overall improved. Seen by neurology. No new complaints. Discharge plans discussed with patient and she would like to go home Pt Condition on Discharge: Good Discharge Disposition: Disch w/ Home Health Serv Discharge Time: <= 30 minutes Discharge Instructions DIET: Follow Instructions for: As Tolerated, No Restrictions Activities you can perform: Regular-No Restrictions Follow up Referrals: PCP Follow-up - 1 Week Continued Medications: Aspirin (Aspirin) 325 Mg Tab 325 MG PO DAILY for Blood Clot Prevention, #30 TAB 0 Refills Dorzolamide-Timolol Opth Drops (Dorzolamide-Timolol Opth Drops) 22.3-6.8 Mg/Ml Soln 1 DROP EACH EYE BID for Glaucoma, BOTTLE 0 Refills Latanoprost Opth Drops (Latanoprost Opth Drops) 0.005% Drops 1 DROP EACH EYE HS for Glaucoma, #2.5 ML 0 Refills Refrigerate until opened. Spironolactone (Spironolactone) 25 Mg Tab 25 MG PO DAILY for edema, #30 TAB 0 Refills Ophelia De La Torre MD Dec 15, 2017 10:31
== END 2017-12-15 13:28 | disposition home health service (06) | DRG 558 ==
LOC: PHED 16:47 → PHEDA 19:17 → OBSVTOIN 19:17 → PH3A 21:51
PROVIDERS: ADMIT Hospitalist; ATTEND Hospitalist
DX: M62.82 Rhabdomyolysis (principal); E86.0 Dehydration; S06.0X1A Concussion with loss of consciousness of 30 minutes or less, initial encounter; R55 Syncope and collapse; H40.9 Unspecified glaucoma; S01.312A Laceration without foreign body of left ear, initial encounter; J06.9 Acute upper respiratory infection, unspecified; R19.7 Diarrhea, unspecified; R60.0 Localized edema; M54.9 Dorsalgia, unspecified; G89.29 Other chronic pain; Z79.82 Long term (current) use of aspirin; Z23 Encounter for immunization; W19.XXXA Unspecified fall, initial encounter
CPT/HCPCS: 70450; 70544; 70551; 71045; 80048; 80053; 81001; 82550; 82552; 82607; 84443; 84484; 85025; 85610; 85652; 87804; 90471; 90686; 90714; 93005; 93306; 93880; 95819; G0008; G8987-GP; G8988-GP; J1940; J7030; J7040; Q2038